=== PATIENT | male | born 1970 | race Caucasian/White ===

== ENCOUNTER 2017-03-15 05:40 | Outpatient (CLI) | payer BC ==
[~2017-03-15] VITALS: Ht 182.9 cm; Wt 72.6 kg
[~2017-03-15 05:40] MED LIST: BUTA1TAB55 PO; DCS100C; DULO60CA6; HYDR1TAB; HYDR1TAB PO; IBUP-792; PNT40TEC; SUCR1TAB23 PO; SULF1TAB38; SULF1TAB38 PO; ZLP10T; relpax PO
[2017-03-15] MEDS ORDERED: PANT40TA3 PO (12:56)
[2017-03-15] MEDS ORDERED: DULO60CA58 PO (12:56)
== END 2017-03-15 13:00 ==
LOC: PREOP 05:40
PROVIDERS: ATTEND Surgery
DX: Z01.818 Encounter for other preprocedural examination (principal); K21.9 Gastro-esophageal reflux disease without esophagitis

== ENCOUNTER 2019-05-14 09:00 | Outpatient (CLI) | payer BC ==
[~2019-05-14] VITALS: Ht 180 cm; Wt 72.7 kg
[~2019-05-14 09:00] MED LIST changes: +DULO60CA59 PO; +PANT40TA3 PO
[2019-05-14] MEDS ORDERED: ZOLP10TA PO (09:06)
[2019-05-14] MEDS ORDERED: TRAM50TA3 PO (09:06)
== END 2019-05-14 09:10 | disposition home or self-care (01) ==
LOC: PREOP 09:00
PROVIDERS: ATTEND Surgery
DX: Z01.818 Encounter for other preprocedural examination (principal)

== ENCOUNTER 2019-05-15 10:03 | Day surgery (SDC) | payer BC ==
--- NOTE | 2019-05-09 06:06 | HISTORY AND PHYSICAL ---
DATE OF SERVICE: ATTENDING PHYSICIAN: Dr. Selene Chadwick. HISTORY OF PRESENT ILLNESS: The patient is a 49-year-old male who was referred over to us for reflux as well as a screening colonoscopy. The patient reports that he does have a history of gastroesophageal reflux disease as well as peptic ulcer disease. He reports he did have an upper endoscopy approximately 5 to 6 years ago and reports that he was found to have a hiatal hernia as well as stomach ulcers. He does report, however, over the last 2 months, he has developed issues with difficulty swallowing and does have occasional episodes of nausea as well as epigastric burning sensation and discomfort. He does report that he does try to watch what he eats. He does take Protonix twice a day; however, still at times does have episodes of reflux. He denies any hematemesis. He also reports that his last colonoscopy was 10 years ago, which he reports was normal. He denies any blood in the stool as well as no family history of colon cancer. He also denies any diarrhea or constipation. PAST MEDICAL HISTORY: Peptic ulcer disease, insomnia, depression. PAST SURGICAL HISTORY: Bilateral total hip replacement in 2009, right elbow surgery 2012. ALLERGIES: PENICILLIN, SULFA. MEDICATIONS: Cymbalta, Protonix, Carafate, Ambien. SOCIAL HISTORY: Negative for smoke. Negative for alcohol. FAMILY HISTORY: Mother breast cancer diagnosed in her 60s, hypertension. Father, myocardial infarction in his 70s. VITAL SIGNS: Blood pressure is 125/58. Current weight 183.8 at 5 feet 11 inches. REVIEW OF SYSTEMS: Well-nourished male in no acute distress. He is not experiencing any shortness of breath or difficulty breathing. No chest pain, palpitations or diaphoresis. He does report occasional episodes of nausea, but no vomiting. He does report episodes of epigastric burning and discomfort as well as reflux and dysphagia. No diarrhea or constipation. No red blood per rectum. No dark tarry stools. No fever or chills. No recent inadvertent weight loss. All other review of systems negative. PHYSICAL EXAMINATION: CHEST: Clear. Good breath sounds bilaterally. HEART: Regular, no murmurs. EXTREMITIES: No lower extremity edema. Negative Homans sign. HEENT: No scleral icterus. NECK: No cervical lymphadenopathy. ABDOMEN: Soft, nontender, nondistended. No palpable masses. No organomegaly. SKIN: Warm, dry and pink. NEUROLOGIC: Awake, alert and oriented x3. ASSESSMENT AND PLAN: A 49-year-old male with dysphagia, who also has a history of peptic ulcer disease and hiatal hernia and is also in need of a screening colonoscopy. At this time, we will recommend proceeding with an EGD with possible balloon dilatation and a screening colonoscopy. The risks and benefits of the procedure as well as the procedure and home care instructions were explained to the patient. The patient verbalized understanding of instructions and agrees to proceed as planned. At this time, we will proceed with scheduling the patient for an EGD with possible balloon dilatation and a screening colonoscopy. Job ID: [id number] DocumentID: [id number] Dictated Date: 05/06/2019 16:15:05 Recruitment Manager Date: 05/06/2019 16:33:57 Dictated By: DAWOOD DURAN APRN
[2019-05-15] VITALS (13 sets, daily range): BP systolic 91–149; BP diastolic 57–91
[~2019-05-15] VITALS: Ht 180 cm; Wt 72.7 kg
[~2019-05-15 10:03] MED LIST changes: +TRAM50TA3 PO; +ZOLP10TA PO
[2019-05-15] MEDS ORDERED: NS IV 500 ML 500 ML IV PRN (10:04)
[2019-05-15] MEDS ORDERED: fentaNYL INJECTION 100 MCG/2 ML AMP IVP ONE (10:15)
[2019-05-15] MEDS ORDERED: HURRICAINE EXT TUBE (BENZOCAINE) XX PRN (10:15)
[2019-05-15] MEDS ORDERED: LIDOCAINE JELLY 2% 6 ML SYRINGE MM PRN (10:15)
--- NOTE | 2019-05-15 10:46 | Conscious Sedation/ASA ---
Conscious Sedation Pre-Proced Time 10:00 ASA Score 1 For ASA 3 and 4: Consider anesthesia and medical clearance. Also, for patients with a history of failed moderate sedation consider anesthesia. Airway Lungs Heart ASA score ASA 1: a normal healthy patient ASA 2: a patient with a mild systemic disease (mid diabetes, controlled hypertension, obesity ASA 3: a patient with a severe systemic disease that limits activity (angina, COPD, prior Myocardial infarction) ASA 4: a patient with an incapacitating disease that is a constant threat to life (CHF, renal failure) ASA 5: a moribund patient not expected to survive 24 hrs. (ruptured aneurysm) ASA 6: a declared brain- patient whose organs are being harvested. For emergent operations, add the letter E after the classification Mallampati Classification Grade 2 Sedation Plan Analgesia, Amnesia, Plan communicated to team members, Discussed options with patient/fam, Discussed risks with patient/fam The patient is an appropriate candidate to undergo the planned procedure, sedation, and anesthesia. The patient immediately re-assessed prior to indication. MADDY CABRERA MD May 15, 2019 10:46
--- NOTE | 2019-05-15 10:46 | Progress Note-Pre Operative ---
Pre-Operative Progress Note H&P Reviewed The H&P was reviewed, patient examined and no changes noted. Date Seen by Provider: May 15, 2019 Time Seen by Provider: 10:00 Date H&P Reviewed: May 15, 2019 Time H&P Reviewed: 10:00 Pre-Operative Diagnosis: GERD, dysphagia MADDY CABRERA MD May 15, 2019 10:46
--- NOTE | 2019-05-15 10:48 | Discharge Inst-Surgical ---
D/C Lap Instructions-RICK Follow Up Activity as tolerated High Fiber Diet 25g or more per day Avoid Alcohol, Caffeine, Spicy [place] and Acid foods. Drink 64 fluid oz or more of fluids per day. Symptoms to Report: Fever over 101 degree F, Nausea/Vomiting If any problems/questions: Contact your physician or go to Emergency Room MADDY CABRERA MD May 15, 2019 10:48
[2019-05-15] MEDS ORDERED: LIDOCAINE JELLY 2% 6 ML SYRINGE ONE (10:56)
[2019-05-15] MEDS ORDERED: fentaNYL INJECTION 100 MCG/2 ML AMP ONE ×2 (10:57)
[2019-05-15] MEDS ORDERED: HURRICAINE EXT TUBE (BENZOCAINE) ONE (10:57)
[2019-05-15] MEDS ORDERED: MIDAZOLAM 5 MG/5 ML (VERSED) VIAL ONE ×3 (10:57)
[2019-05-15] MEDS ORDERED: ACETAMINOPHEN 325 MG TABLET PO PRN (11:00)
[2019-05-15] MEDS ORDERED: HYDROcodone/APAP 5 MG/325 MG (LORTAB) TAB PO PRN (11:00)
[2019-05-15] MEDS ORDERED: ONDANSETRON 4 MG/2 ML (SDV) Z0FRAN IVP PRN (11:00)
[2019-05-15] MEDS ORDERED: morphine INJ 10 MG/ML 1ML (SYR OR VIAL) IVP PRN ×2 (11:00)
[2019-05-15] MEDS: MIDAZOLAM 5 MG/5 ML (VERSED) VIAL IV PRN ×7 (11:04→11:29)
--- NOTE | 2019-05-15 11:52 | Progress Note-Post Operative ---
Post-Operative Progess Note Surgeon (s)/Nailhead Puncher (s) Surgeon MADDY CABRERA MD Nailhead Puncher: none Pre-Operative Diagnosis GERD, dysphagia Post-Operative Diagnosis reflux esophagitis(stage 2-3), mild distal esophageal stricture, small-mod hiatal hernia(2cm), mild gastritis. mild chronic stage 1 ext and int hemorrhoids, normal colon and rectum. Procedure & Operative Findings Date of Procedure 05/15/19 Procedure Performed/Findings EGD with bx and balloon dilatation. Colonoscopy. Anesthesia Type cs Estimated Blood Loss Estimated blood loss (mL): minimal Specimens/Packing Specimens Removed ge jxn, antrum MADDY CABRERA MD May 15, 2019 11:52
--- NOTE | 2019-05-15 13:21 | OPERATIVE REPORT ---
DATE OF SERVICE: 05/15/2019 ATTENDING PRIMARY CARE PHYSICIAN: Dr. Selene Chadwick. PREOPERATIVE DIAGNOSES: Dysphagia, gastroesophageal reflux disease and screening colonoscopy. POSTOPERATIVE DIAGNOSES: Reflux esophagitis between stage II and III with a mild distal esophageal stricture and Schatzki's ring, small to moderate size hiatal hernia approximately 2 cm in size, mild gastritis. No distal obstructions. Mild chronic stage I external and internal hemorrhoids. Prostate gland was palpable and appeared normal. The remainder of the colon was normal. PROCEDURES: EGD with biopsy and balloon dilatation, colonoscopy. SURGEON: Maddy Ochoa MD. ANESTHESIA: Conscious sedation. ESTIMATED BLOOD LOSS: Minimal. FINDINGS: Same as postoperative diagnoses. DISPOSITION: The patient tolerated the procedure well. INDICATIONS: The patient is a 49-year-old male referred over to us for a significant reflux as well as the development of dysphagia. He has had reflux for many years and did undergo an upper endoscopy approximately 6 years ago and was found to have a hiatal hernia as well as stomach ulcerations. Over the last 2 to 3 months, he has had difficulty swallowing. He does not report any hematemesis or coffee ground emesis and is currently on Protonix 40 mg b.i.d. He is also in need of a screening colonoscopy. His last one was approximately 10 years ago. He does not have a family history of colon cancer; however, does have a family history of cancer with his mother having been diagnosed with breast cancer in her 60s. DESCRIPTION OF PROCEDURE: The patient was brought to the endoscopy suite and laid in left lateral decubitus position. After adequate IV pain and sedative medications and conscious sedation anesthesia, the mouthpiece was applied. The endoscope was placed in the mouth, visualizing the pharynx and hypopharyngeal region. Vocal cords, epiglottis and vallecula identified and appeared to be normal. The endoscope was then gently intubated into the esophageal opening and esophagus insufflated. The endoscope was then advanced to the first, second and third portion of the esophagus. At the level of the GE junction, a reflux esophagitis between stage II and III identified. There was also a distal esophageal stricture identified and Schatzki's ring, which was mild. A biopsy was taken of the GE junction with forceps with visualization of good hemostasis. The endoscope was then advanced in the stomach and endoscope retroflexed, visualizing a hiatal hernia, which was small to moderate size, approximately 2 cm. There was also significant reflux with insufflation on a constant basis. There was a mild gastritis. No formal ulcerations, polyps or any neoplasms. A biopsy was taken of the antrum to rule out H. pylori with visualization of good hemostasis. The endoscope was then advanced to the pylorus and the first and second portion of the duodenum, which appeared normal with no distal obstructions. We then proceeded with dilatation of the distal esophageal stricture. The balloon was placed into the stomach and pulled back to the area of stricture. We first proceeded to 2 atmospheres pressure with no resistance. We then proceeded to 4 atmospheres of pressure with mild resistance. Once we had 5 atmospheres of pressure or approximately 19.5 mm in luminal diameter, there was a moderate resistance and left this in place for approximately 60 seconds. The balloon was then desufflated and removed with visualization of good hemostasis as well as no mucosal tears. Endoscope was then slowly withdrawn while taking a second look and suctioning of residual air with no additional findings. Under the same anesthesia, we then proceeded with the colonoscopy portion of procedure. Digital rectal examination was performed, which revealed mild chronic stage I external and internal hemorrhoids, not actively edematous nor inflamed and no bleeding. Normal sphincter tone was felt and there were no palpable masses. The prostate gland was palpable and appeared normal. The endoscope was then intubated and anus and rectum gently insufflated. The endoscope was then advanced to the valves of Storm of the rectum with no polyps or any neoplasms identified. We then proceeded through the sigmoid colon where no diverticulosis identified. The endoscope was then advanced and remainder of the descending, transverse and ascending colon to the cecum. These segments were normal. There were no polyps or any neoplasms identified throughout the colon or rectum. The endoscope was slowly withdrawn while taking a second look and suctioning of residual air with no additional findings. The patient tolerated the procedure well. For his upper gastrointestinal symptoms including the reflux and dysphagia, we will continue with a graded dilatation approximately every 6 to 8 weeks and if he continues to have difficulty with gastroesophageal reflux disease despite maximal medical therapy including the necessary lifestyle and diet accommodation including small and more frequent meals, avoidance of eating at night as well as head elevation while lying supine as well as avoidance of caffeinated beverages, spicy, greasy foods, he may benefit from an antireflux procedure and hiatal hernia repair; however, before doing this, we would do the necessary evaluations and tests including an esophageal manometry study. We will have him followup in 6 to 8 weeks to see about his reflux and dysphagia. From a colonoscopy standpoint, this was completely normal and he does not have any first degree family history of colon cancer and he may wait 10 years for his next colonoscopy. Job ID: [id number] DocumentID: [id number] Dictated Date: 05/15/2019 11:45:58 Utility Locator Date: 05/15/2019 13:20:37 Dictated By: MADDY OCHOA MD
== END 2019-05-15 12:47 | disposition home or self-care (01) ==
LOC: ENDO 10:03
PROVIDERS: ATTEND Surgery
DX: Z12.11 Encounter for screening for malignant neoplasm of colon (principal); K21.0 Gastro-esophageal reflux disease with esophagitis; K22.2 Esophageal obstruction; K44.9 Diaphragmatic hernia without obstruction or gangrene; K29.70 Gastritis, unspecified, without bleeding; K64.0 First degree hemorrhoids; K27.9 Peptic ulcer, site unspecified, unspecified as acute or chronic, without hemorrhage or perforation; Z85.3 Personal history of malignant neoplasm of breast; F32.9 Major depressive disorder, single episode, unspecified; G47.00 Insomnia, unspecified; Z96.643 Presence of artificial hip joint, bilateral; Z88.0 Allergy status to penicillin; Z88.2 Allergy status to sulfonamides; Z79.899 Other long term (current) drug therapy

== ENCOUNTER → 2020-03-18 | Outpatient (CLI) | payer BC ==
[~2020-03-18] MED LIST changes: -PANT40TA3 PO; +PANT40TA52 PO
--- NOTE | 2020-03-18 16:54 | Diagnostic Imaging Report ---
PROCEDURE: MR imaging cervical spine without contrast. TECHNIQUE: Multiplanar, multisequence MR imaging of the cervical spine was performed without contrast. INDICATION: Chronic neck pain. COMPARISON: Cervical spine MRI from 09/26/2008. FINDINGS: The supervisor whipped topping images demonstrate questionable left upper lobe pulmonary mass lesion, although this is more likely artifactual in nature. The cervical spine is normal in alignment. Specifically, there is no spondylolisthesis. No fracture or marrow replacing process. The cervical cord is normal in size and signal. Paravertebral musculature is normal. C2-C3: No spinal canal or neural foraminal narrowing. C3-C4: No spinal canal or neuroforaminal narrowing. C4-C5: Uncovertebral joint hypertrophy causes mild right neuroforaminal narrowing. No spinal stenosis. C5-C6: Bilateral paracentral disc osteophyte complex minimally effaces the ventral thecal sac similar to prior exam. There is no spinal stenosis. Mild right neuroforaminal narrowing due to uncovertebral joint hypertrophy. C6-C7: No spinal canal or neural foraminal narrowing. C7-T1: No spinal canal or neuroforaminal narrowing. IMPRESSION: 1. Minimal degenerative changes in the cervical spine are similar in appearance to 09/26/2008. Dictated by: Dictated on workstation # [id number]
== END ==
LOC: RAD 16:04
PROVIDERS: ATTEND Orthopaedic Surgery
DX: M47.22 Other spondylosis with radiculopathy, cervical region (principal)
CPT/HCPCS: 72141

== ENCOUNTER 2020-05-25 05:29 | Outpatient (RCR) | payer BC ==
[~2020-05-25] VITALS: Ht 180.3 cm; Wt 72.6 kg
== END 2020-05-25 13:30 | disposition home or self-care (01) ==
LOC: PREOP 05:29
PROVIDERS: ATTEND Surgery
DX: Z01.812 Encounter for preprocedural laboratory examination (principal); K21.9 Gastro-esophageal reflux disease without esophagitis; Z20.822 Contact with and (suspected) exposure to COVID-19
CPT/HCPCS: 87635

== ENCOUNTER 2020-05-27 08:28 | Day surgery (SDC) | payer BC ==
--- NOTE | 2020-05-25 08:56 | HISTORY AND PHYSICAL ---
DATE OF SERVICE: DATE OF ADMISSION: 05/27/2020 ATTENDING PRIMARY CARE PHYSICIAN: Selene Chadwick DO HISTORY OF PRESENT ILLNESS: The patient is a 50-year-old male known to us. He has had issues with reflux for approximately 10 years. He has also had issues with peptic ulcer disease in the past as well. Around 2013, he states that he underwent an EGD and was found to have a hiatal hernia as well as stomach ulcerations. He was then seen by us in 04/2019 where he would have epigastric burning sensation; however, would also have pressure sensation with specific types of foods that he ate and this will either reduce on its own over time or come up. He does not report any hematemesis, no coffee ground emesis. He states that he has been doing well for the past year; however, states reoccurrence of the dysphagia. His last EGD was done on 05/15/2019 where he was found to have a reflux esophagitis between stage II and III as well as a mild distal esophageal stricture and Schatzki's ring as well as a small to moderate size hiatal hernia approximately 2 cm in size and no distal obstructions. PAST MEDICAL HISTORY: Peptic ulcer disease, reflux esophagitis, mild esophageal stricture, and insomnia. PAST SURGICAL HISTORY: Bilateral total hip replacement, 10; right elbow surgery, 13. ALLERGIES: PENICILLIN, SULFA. MEDICATIONS: Cymbalta, Protonix, Carafate, Ambien. SOCIAL HISTORY: Negative smoke, negative alcohol. FAMILY HISTORY: Mother, breast cancer, diagnosed in her 60s, hypertension. Father, myocardial infarction in his 70s. VITAL SIGNS: Blood pressure 120/60, current weight 178 pounds at 5 feet 11 inches. REVIEW OF SYSTEMS: Well-nourished male in no acute distress. He is not experiencing any shortness of breath or difficulty breathing. No chest pain, palpitations, diaphoresis. No nausea, vomiting, no diarrhea or constipation. Intermittent episodes of dysphagia with a substernal pressure sensation after food bolus, which were either reduce on its own; however, would also result in regurgitation. No hematemesis, no coffee ground emesis. No diarrhea, constipation, no red blood per rectum, no dark tarry stools. No fever, chills, no recent inadvertent weight loss. All other review of systems negative. PHYSICAL EXAMINATION: CHEST: Clear. Good breath sounds bilaterally. HEART: Regular, no murmurs. EXTREMITIES: No lower extremity edema, negative Homans sign. HEENT: No scleral icterus. NECK: No cervical lymphadenopathy. ABDOMEN: Soft, nontender, nondistended. SKIN: Warm, dry. ASSESSMENT AND PLAN: A 50-year-old male with a history of a reflux esophagitis as well as a mild distal esophageal stricture and small to moderate size hiatal hernia with recurrent dysphagia. We will schedule him for an EGD as well as biopsies as well as a repeat balloon dilatation. Job ID: [id number] DocumentID: [id number] Dictated Date: 05/21/2020 18:50:45 Zigzag Topstitcher Date: 05/21/2020 19:10:10 Dictated By: MADDY CABRERA MD
[2020-05-27] VITALS (12 sets, daily range): BP systolic 110–157; BP diastolic 75–98
[~2020-05-27] VITALS: Ht 180.3 cm; Wt 72.6 kg
[~2020-05-27 08:28] MED LIST changes: +NS IV 500 ML 500 ML ONE
[2020-05-27] MEDS ORDERED: fentaNYL INJ 100 MCG/2 ML AMP IVP ONE (08:45)
[2020-05-27] MEDS ORDERED: HURRICAINE EXT TUBE (BENZOCAINE) XX PRN (08:45)
[2020-05-27] MEDS ORDERED: LIDOCAINE JELLY 2% 6 ML SYRINGE MM PRN (08:45)
[2020-05-27] MEDS ORDERED: NS IV 500 ML 500 ML IV PRN (08:45)
[2020-05-27] MEDS ORDERED: MIDAZOLAM 5 MG/5 ML (VERSED) VIAL IV ONE (08:45)
[2020-05-27] MEDS ORDERED: MIDAZOLAM 5 MG/5 ML (VERSED) VIAL ONE ×2 (08:55→09:52)
[2020-05-27] MEDS ORDERED: LIDOCAINE JELLY 2% 6 ML SYRINGE ONE (08:55)
[2020-05-27] MEDS ORDERED: HURRICAINE EXT TUBE (BENZOCAINE) ONE (08:55)
[2020-05-27] MEDS ORDERED: fentaNYL INJ 100 MCG/2 ML AMP ONE (08:55)
--- NOTE | 2020-05-27 09:43 | Progress Note-Pre Operative ---
Pre-Operative Progress Note H&P Reviewed The H&P was reviewed, patient examined and no changes noted. Date Seen by Provider: May 27, 2020 Time Seen by Provider: 09:00 Date H&P Reviewed: May 27, 2020 Time H&P Reviewed: 09:00 Pre-Operative Diagnosis: GERD, dysphagia MADDY CABRERA MD May 27, 2020 09:43
--- NOTE | 2020-05-27 09:43 | Conscious Sedation/ASA ---
Conscious Sedation Pre-Proced Time 09:00 ASA Score 2 For ASA 3 and 4: Consider anesthesia and medical clearance. Also, for patients with a history of failed moderate sedation consider anesthesia. Airway Lungs Heart ASA score ASA 1: a normal healthy patient ASA 2: a patient with a mild systemic disease (mid diabetes, controlled hypertension, obesity ASA 3: a patient with a severe systemic disease that limits activity (angina, COPD, prior Myocardial infarction) ASA 4: a patient with an incapacitating disease that is a constant threat to life (CHF, renal failure) ASA 5: a moribund patient not expected to survive 24 hrs. (ruptured aneurysm) ASA 6: a declared brain- patient whose organs are being harvested. For emergent operations, add the letter E after the classification Mallampati Classification Grade 2 Sedation Plan Analgesia, Amnesia, Plan communicated to team members, Discussed options with patient/fam, Discussed risks with patient/fam The patient is an appropriate candidate to undergo the planned procedure, sedation, and anesthesia. The patient immediately re-assessed prior to indication. MADDY CABRERA MD May 27, 2020 09:43
[2020-05-27] MEDS ORDERED: ACETAMINOPHEN 325 MG TABLET PO PRN (09:45)
[2020-05-27] MEDS ORDERED: HYDROcodone/APAP 5 MG/325 MG (LORTAB) TAB PO PRN (09:45)
[2020-05-27] MEDS ORDERED: ONDANSETRON 4 MG/2 ML (SDV) Z0FRAN IVP PRN (09:45)
[2020-05-27] MEDS ORDERED: morphine INJ 10 MG/ML 1ML (SYR OR VIAL) IVP PRN ×2 (09:45)
--- NOTE | 2020-05-27 09:45 | Discharge Inst-Surgical ---
D/C Lap Instructions-RICK Follow Up PRN Activity as tolerated High Fiber Diet 25g or more per day Avoid Alcohol, Caffeine, Spicy [place] and Acid foods. Drink 64 fluid oz or more of fluids per day. Symptoms to Report: Fever over 101 degree F, Nausea/Vomiting If any problems/questions: Contact your physician or go to Emergency Room MADDY CABRERA MD May 27, 2020 09:45
--- NOTE | 2020-05-27 10:42 | Progress Note-Post Operative ---
Post-Operative Progess Note Surgeon (s)/Development Analyst (s) Surgeon MADDY CABRERA MD Development Analyst: none Pre-Operative Diagnosis GERD, dysphagia Post-Operative Diagnosis reflux esophagitis(stage 2), mild dist esoph stricture, small HH(2cm), mild gastritis. Procedure & Operative Findings Date of Procedure 05/27/20 Procedure Performed/Findings EGD with bx and balloon dilatation. Anesthesia Type cs Estimated Blood Loss Estimated blood loss (mL): minimal Specimens/Packing Specimens Removed ge jxn, antrum MADDY CABRERA MD May 27, 2020 10:42
--- NOTE | 2020-05-27 16:35 | OPERATIVE REPORT ---
DATE OF SERVICE: 05/27/2020 ATTENDING PRIMARY CARE PHYSICIAN: Dr. Selene Chadwick. PREOPERATIVE DIAGNOSES: Recurrent dysphagia and gastroesophageal reflux disease. POSTOPERATIVE DIAGNOSES: Reflux esophagitis stage II, mild distal esophageal stricture, small hiatal hernia 2 cm in size, mild gastritis and no distal obstructions. PROCEDURES PERFORMED: EGD with biopsy and balloon dilatation. SURGEON: Maddy Cabrera MD. ANESTHESIA: Conscious sedation. ESTIMATED BLOOD LOSS: Minimal. FINDINGS: Reflux esophagitis stage II, mild distal esophageal stricture, small hiatal hernia 2 cm in size, mild gastritis and no distal obstructions. DISPOSITION: The patient tolerated the procedure well. INDICATIONS FOR PROCEDURE: The patient is a 50-year-old male known to us. He has had issues with gastroesophageal reflux for the past 10 years as well as issues with the peptic ulcer disease. Around 2013, he underwent an EGD and found to have a hiatal hernia as well as stomach ulceration. He was then seen by us in 04/2019, where he had epigastric burning sensation; however, would also have a pressure sensation with specific types of foods in the substernal region, which would either reduce on its own or come up over time. He does not report any hematemesis and no coffee ground emesis. He did undergo an EGD as well as a balloon dilatation on 05/15/2019 and was found to have a distal esophageal stricture and Schatzki's ring and he states that this did improve his symptoms; however, in the past few weeks, he has had recurrence of symptoms with the dysphagia. DESCRIPTION OF PROCEDURE: The patient was brought to the endoscopy suite and laid in the left lateral decubitus position. After adequate IV pain and sedative medications and conscious sedation anesthesia, the mouthpiece was applied. The endoscope was placed in the mouth, visualizing the pharynx and hypopharyngeal region. Vocal cords, epiglottis and vallecula identified and appeared to be normal. The endoscope was then gently intubated, the esophageal opening and esophagus insufflated. The endoscope was then advanced through the first, second and third portion of esophagus. At the level of GE junction, a reflux esophagitis stage II identified and there was also a mild distal esophageal stricture in Schatzki's ring. A biopsy was taken of the GE junction with forceps with visualization of good hemostasis. The endoscope was then advanced in the stomach and endoscope retroflexed visualizing a small hiatal hernia, previously identified with no change in size at approximately 2 cm. There was a mild gastritis. No formal ulcerations, polyps or any neoplasms. A biopsy was taken of the antrum to rule out H. pylori with visualization of good hemostasis. The endoscope was then advanced through the pylorus into the first and second portion of the duodenum, which appeared normal with no distal obstructions. The endoscope was then slowly withdrawn while taking a second look with no additional findings. We then proceeded with the dilatation of the distal esophageal stricture and the balloon was placed in the stomach and pulled back to the area of stricture. We then proceeded with 2, then 4, then 6 atmospheres of pressure with moderate resistance or 20 mm in luminal diameter and left this in place for approximately 120 seconds. The balloon was then desufflated and removed with visualization of good hemostasis as well as no mucosal tears. The endoscope was then slowly withdrawn while taking a second look and suctioning of residual air with no additional findings. The patient tolerated the procedure well. We will recommend continued medical management with small and more frequent meals, avoidance of eating at night as well as head elevation while lying supine. He is already on PPI acid program dir, which we will have him continue. We will continue to monitor his progress. If he does continue to have worsening reflux as well as dysphagia, he may continue with a balloon dilatation on a p.r.n. basis. However, the root cause may be the hiatal hernia exacerbating his reflux causing the recurrence of stricture and dysphagia and in long-term he might be better served having the hiatal hernia repair after proceeding with an esophageal manometry study to rule out any esophageal dysmotility disorders. Job ID: [id number] DocumentID: [id number] Dictated Date: 05/27/2020 10:18:05 Or Manager Date: 05/27/2020 16:34:49 Dictated By: MADDY CABRERA MD [facility]ade
== END 2020-05-27 11:05 | disposition home or self-care (01) ==
LOC: ENDO 08:28
PROVIDERS: ATTEND Surgery
DX: K21.00 Gastro-esophageal reflux disease with esophagitis, without bleeding (principal); K22.2 Esophageal obstruction; K44.9 Diaphragmatic hernia without obstruction or gangrene; K29.50 Unspecified chronic gastritis without bleeding; G47.00 Insomnia, unspecified; Z20.822 Contact with and (suspected) exposure to COVID-19; Z88.2 Allergy status to sulfonamides; Z88.0 Allergy status to penicillin; Z96.643 Presence of artificial hip joint, bilateral; Z79.899 Other long term (current) drug therapy; Z80.3 Family history of malignant neoplasm of breast

== ENCOUNTER → 2020-10-06 | Outpatient (CLI) | payer BC ==
[~2020-10-06] VITALS: Ht 177 cm; Wt 72.0 kg
[~2020-10-06] MED LIST changes: +CATHETER FLUSH 10 ML SYR IV PRN; -NS IV 500 ML 500 ML ONE
[2020-10-06 08:06] VITALS: BP 142/86
--- NOTE | 2020-10-08 17:23 | STRESS TEST ---
DATE OF SERVICE: 10/06/2020 RESTING AND POST EXERCISE TECHNETIUM-99M TETROFOSMIN SPECT CT IMAGING ORDERING PHYSICIAN: Dr. Chadwick. PRIMARY PHYSICIAN: Dr. Chadwick. CLINICAL DIAGNOSIS: Chest discomfort. Baseline images were carried out after injection of 10.25 mCi of technetium-99m Tetrofosmin. Subsequently, exercise was carried out on treadmill and it was directed and supervised by Dr. Chadwick and the electrocardiographic portion of the study is reported separately by her. The patient attained 86% of maximum predicted heart rate and received 29.9 mCi of technetium-99m Tetrofosmin at peak exercise. Exercise was continued for about another minute after he received 29.9 mCi of technetium-99m Tetrofosmin. Review of images at rest and following stress does not indicate any significant perfusion defects consistent with myocardial ischemia or infarction. Gated images show normal global left ventricular systolic function with normal regional wall motion. Left ventricular ejection fraction is calculated to be 54%. Left ventricular end diastolic volume is 66 mL. TID is absent (0.97). CONCLUSIONS: 1. No evidence of any significant myocardial ischemia or infarction on this study. 2. Normal regional wall motion. 3. Normal global left ventricular systolic function with a calculated ejection fraction of 54%. Job ID: [id number] DocumentID: [id number] Dictated Date: 10/08/2020 16:44:13 [employer] Manager Date: 10/08/2020 17:22:12 Dictated By: KELLI FOSTER MD, MA, FACP, FACC,
== END ==
LOC: CARD 07:00
PROVIDERS: ATTEND Internal Medicine
DX: R07.89 Other chest pain (principal)
CPT/HCPCS: 78452; 93017; A9502

== ENCOUNTER 2021-11-28 23:26 | Emergency (ER) | payer BC ==
[~2021-11-28] VITALS: Ht 180.3 cm; Wt 77.1 kg
[~2021-11-28 23:26] MED LIST changes: -CATHETER FLUSH 10 ML SYR IV PRN
[2021-11-28] MEDS ORDERED: fentaNYL INJ 100 MCG/2 ML AMP IVP STA (23:51)
[2021-11-28 23:58] LABS: BASOPHILS % (AUTO) 0 % (0-10); EOSINOPHILS # (AUTO) 0.1 10^3/uL (0.0-0.3); EOSINOPHILS % (AUTO) 1 % (0-10); HEMATOCRIT 40 % (40-54); HEMOGLOBIN 14.4 g/dL (13.3-17.7); LYMPHOCYTES # (AUTO) 2.8 10^3/uL (1.0-4.0); LYMPHOCYTES % (AUTO) 30 % (12-44); MEAN CORPUSCULAR HEMOGLOBIN 32 pg (25-34); MEAN CORPUSCULAR HGB CONC 36 g/dL (32-36); MEAN CORPUSCULAR VOLUME 88 fL (80-99); MEAN PLATELET VOLUME 10.4 fL (9.0-12.2); MONOCYTES # (AUTO) 0.8 10^3/uL (0.0-1.0); MONOCYTES % (AUTO) 9 % (0-12); NEUTROPHILS # (AUTO) 5.5 10^3/uL (1.8-7.8); NEUTROPHILS % (AUTO) 60 % (42-75); PLATELET COUNT 321 10^3/uL (130-400); WHITE BLOOD COUNT 9.1 10^3/uL (4.3-11.0)
[2021-11-29] MEDS ORDERED: ONDANSETRON 4 MG/2 ML (SDV) Z0FRAN IVP ONE
[2021-11-29] MEDS ORDERED: LACTATED RINGERS 1,000 ML IV ONE
[2021-11-29] MEDS ORDERED: fentaNYL INJ 100 MCG/2 ML AMP IVP ONE (00:30)
[2021-11-29 00:36] LABS: ALBUMIN 4.3 GM/DL (3.2-4.5); BILIRUBIN,TOTAL 0.4 MG/DL (0.1-1.0); CALCIUM 9.1 MG/DL (8.5-10.1); CREATININE SERUM 0.77 MG/DL (0.60-1.30); MAGNESIUM 1.9 MG/DL (1.6-2.4); POTASSIUM 3.3 MMOL/L (3.6-5.0); TOTAL PROTEIN 6.7 GM/DL (6.4-8.2)
[2021-11-29 00:48] LABS: ERYTHROCYTE SEDIMENTATION RATE 3 MM/HR (0-30)
[2021-11-29] MEDS ORDERED: METOCLOPRAMIDE INJ 10 MG/2 ML (REGLAN) IVP ONE (01:15)
[2021-11-29] MEDS ORDERED: KETOROLAC 30 MG/ML VIAL IVP ONE (01:15)
[2021-11-29] MEDS ORDERED: NS IV 1000 ML 1,000 ML IV ONE (01:30)
[2021-11-29] MEDS ORDERED: RX-METOCLOPRAMIDE 5 MG (REGLAN) TAB PPK#8 PO STA (02:04)
[2021-11-29] MEDS ORDERED: RX-ONDANSETRON 4 MG ODT (ZOFRAN) PPK #4 PO STA (02:06)
[2021-11-29] MEDS ORDERED: METO-310 PO (02:06)
[2021-11-29] MEDS ORDERED: KETO10TA PO (02:06)
[2021-11-29] MEDS ORDERED: ONDA8TAB13 PO (02:06)
--- NOTE | 2021-11-29 02:06 | ED Headache ---
General Chief Complaint: Head/Cervical Problems Stated Complaint: BRICE,NAUSEA Nursing Triage Note: PT AMB TO 9. PT STATED THAT HIS HEADACHE STARTED AN HOUR AGO, HAD A FEVER YESTERDAY, AND NAUSEA THAT STARTED TODAY. PT TOOK TYLENOL AT 1999. Allergies and Home Medications Allergies Coded Allergies: Penicillins (Unverified Allergy, Mild, HIVES, 05/14/19) Sulfa (Sulfonamide Antibiotics) (Unverified Allergy, Mild, ITCHING, 05/14/19) Patient Home Medication List Duloxetine HCl (Duloxetine HCl) 60 Mg Capsule.dr, 60 MG PO DAILY, (Reported) Entered as Reported by: SHENG WILLIAMSON on 03/15/17 1256 Pantoprazole Sodium (Pantoprazole Sodium) 40 Mg Tablet.dr, 40 MG PO BID, (Reported) Entered as Reported by: SHENG WILLIAMSON on 03/15/17 1256 Tramadol HCl (Tramadol HCl) 50 Mg Tablet, 50 MG PO PRN, (Reported) Entered as Reported by: SHENG WILLIAMSON on 05/14/19 0906 Zolpidem Tartrate (Ambien) 10 Mg Tablet, 10 MG PO HS PRN for INSOMNIA, (Reported) Entered as Reported by: SHENG WILLIAMSON on 05/14/19 0906 Past Mdontle-Lbfxfq-Lhufxq Hx Patient Social History Tobacco Use?: No Substance use?: No Alcohol Use?: No Pt feels they are or have been: Unable to obtain Immunizations Up To Date Tetanus Booster (TDap): Unknown Seasonal Allergies Seasonal Allergies: Yes Past Medical History Surgeries: Yes (BILAT HIP REPLACEMENT, ELBOW) Respiratory: No Currently Using CPAP: No Currently Using BIPAP: No Cardiac: No Neurological: Yes Headaches /Migraines Reproductive Disorders: No Sexually Transmitted Disease: No HIV/AIDS: No Genitourinary: No Gastrointestinal: Yes Gastroesophageal Reflux, Hiatal Hernia Musculoskeletal: Yes Degenerate Disk Disease, Chronic Back Pain Endocrine: No HEENT: Yes (GLASSES) Loss of Vision: Denies Hearing Impairment: Denies Cancer: No Psychosocial: Yes Anxiety, Depression Integumentary: No Blood Disorders: No Adverse Reaction/Blood Tranf: No (N/A) Physical Exam Vital Signs Vital Signs - First Documented 11/28/21 23:35 Temp 36.6 Pulse 80 Pulse Ox 98 O2 Delivery Room Air Capillary Refill : Height, Weight, BMI Height: 6'0.00" Weight: 160lbs. 0.0oz. [id number]; 23.00 BMI Method:Stated Progress/Results/Core Measures Results/Orders Lab Results Laboratory Tests Test 11/28/21 23:40 11/28/21 23:50 Range/Units Influenza Type A (RT-PCR) Not Detected Not Detecte Influenza Type B (RT-PCR) Not Detected Not Detecte SARS-CoV-2 RNA (RT-PCR) Not Detected Not Detecte White Blood Count 9.1 4.3-11.0 10^3/uL Red Blood Count 4.55 4.30-5.52 10^6/uL Hemoglobin 14.4 13.3-17.7 g/dL Hematocrit 40 40-54 % Mean Corpuscular Volume 88 80-99 fL Mean Corpuscular Hemoglobin 32 25-34 pg Mean Corpuscular Hemoglobin Concent 36 32-36 g/dL Red Cell Distribution Width 11.8 10.0-14.5 % Platelet Count 321 130-400 10^3/uL Mean Platelet Volume 10.4 9.0-12.2 fL Immature Granulocyte % (Auto) 0 % Neutrophils (%) (Auto) 60 42-75 % Lymphocytes (%) (Auto) 30 12-44 % Monocytes (%) (Auto) 9 0-12 % Eosinophils (%) (Auto) 1 0-10 % Basophils (%) (Auto) 0 0-10 % Neutrophils # (Auto) 5.5 1.8-7.8 10^3/uL Lymphocytes # (Auto) 2.8 1.0-4.0 10^3/uL Monocytes # (Auto) 0.8 0.0-1.0 10^3/uL Eosinophils # (Auto) 0.1 0.0-0.3 10^3/uL Basophils # (Auto) 0.0 0.0-0.1 10^3/uL Immature Granulocyte # (Auto) 0.0 0.0-0.1 10^3/uL Erythrocyte Sedimentation Rate 3 0-30 MM/HR Sodium Level 140 135-145 MMOL/L Potassium Level 3.3 L 3.6-5.0 MMOL/L Chloride Level 104 98-107 MMOL/L Carbon Dioxide Level 23 21-32 MMOL/L Anion Gap 13 5-14 MMOL/L Blood Urea Nitrogen 7 7-18 MG/DL Creatinine 0.77 0.60-1.30 MG/DL Estimat Glomerular Filtration Rate 108 BUN/Creatinine Ratio 9 Glucose Level 99 70-105 MG/DL Calcium Level 9.1 8.5-10.1 MG/DL Corrected Calcium 8.9 8.5-10.1 MG/DL Magnesium Level 1.9 1.6-2.4 MG/DL Total Bilirubin 0.4 0.1-1.0 MG/DL Aspartate Amino Transf (AST/SGOT) 15 5-34 U/L Alanine Aminotransferase (ALT/SGPT) 25 0-55 U/L Alkaline Phosphatase 49 40-136 U/L C-Reactive Protein High Sensitivity 0.28 0.00-0.50 MG/DL Total Protein 6.7 6.4-8.2 GM/DL Albumin 4.3 3.2-4.5 GM/DL My Orders Orders - SHAWN WASHINGTON DO Covid 19 Inhouse Test (11/28/21 23:45) Influenza A And B By Pcr (11/28/21 23:45) Isolation Central Supply Req (11/28/21 23:45) Ed Iv/Invasive Line Start (11/28/21 23:51) Monitor-Rhythm Ecg Trace Only (11/28/21 23:51) Cbc With Automated Diff (11/28/21 23:51) Comprehensive Metabolic Panel (11/28/21 23:51) Hs C Reactive Protein (11/28/21 23:51) Magnesium (11/28/21 23:51) Erythrocyte Sedimentation Rate (11/28/21 23:51) Ondansetron Injection (Zofran Injectio (11/29/21 00:00) Fentanyl Inj (Sublimaze Injection) (11/28/21 23:51) Ed Iv/Invasive Line Start (11/28/21 23:51) Lactated Ringers (Lr 1000 Ml Iv Solution (11/29/21 00:00) Ct Head Wo-R/O Stroke (11/29/21 00:22) Chest Pa/Lat (2 View) (11/29/21 00:22) Fentanyl Inj (Sublimaze Injection) (11/29/21 00:30) Ketorolac Injection (Toradol Injection) (11/29/21 01:15) Metoclopramide Injection (Reglan Injecti (11/29/21 01:15) Ns Iv 1000 Ml (Sodium Chloride 0.9%) (11/29/21 01:30) Medications Given in ED Current Medications Medications Dose Ordered Sig/Melyssa Route Start Time Stop Time Status Last Admin Dose Admin Fentanyl Citrate 50 mcg ONCE ONCE IVP 11/29/21 00:30 11/29/21 00:31 DC 11/29/21 00:34 50 MCG Ketorolac Tromethamine 30 mg ONCE ONCE IVP 11/29/21 01:15 11/29/21 01:16 DC 11/29/21 01:10 30 MG Lactated Ringer's 1,000 ml @ 0 mls/hr Q0M ONCE IV 11/29/21 00:00 11/29/21 00:01 DC 11/29/21 00:13 1,000 MLS/HR Metoclopramide HCl 10 mg ONCE ONCE IVP 11/29/21 01:15 11/29/21 01:16 DC 11/29/21 01:10 10 MG Ondansetron HCl 8 mg ONCE ONCE IVP 11/29/21 00:00 11/29/21 00:01 DC 11/29/21 00:13 8 MG Sodium Chloride 1,000 ml @ 0 mls/hr Q0M ONCE IV 11/29/21 01:30 11/29/21 01:31 DC 11/29/21 01:18 999 MLS/HR Vital Signs/I&O 11/28/21 23:35 Temp 36.6 Pulse 80 B/P (MAP) Pulse Ox 98 O2 Delivery Room Air Departure Impression Primary Impression: Headache Disposition: 01 HOME, SELF-CARE Condition: Improved Departure-Patient Inst. Decision time for Depature: 02:05 Referrals: RAVI HERNANDEZ DO (PCP/Family) Primary Care Physician Patient Instructions: Headache, Adult (DC) Add. Discharge Instructions: HOME, REST LOTS OF CLEAR LIQUIDS FOLLOW UP WITH YOUR DR THIS WEEK FOR FURTHER CARE, RETURN TO ER IF WORSE All discharge instructions reviewed with patient and/or family. Voiced understanding. Scripts Ketorolac Tromethamine (Ketorolac Tromethamine) 10 Mg Tablet 10 MG PO Q6H for Pain, #15 TAB Prov: SHAWN WASHINGTON DO 11/29/21 Metoclopramide HCl (Reglan) 10 Mg Tablet 10 MG PO Q6H for Nausea/Vomiting, #10 TAB Prov: SHAWN WASHINGTON DO 11/29/21 Ondansetron (Ondansetron Odt) 8 Mg Tab.rapdis 8 MG PO Q6H, #10 TAB Prov: SHAWN WASIHNGTON DO 11/29/21 SHAWN WASHINGTON DO Nov 29, 2021 02:06
[2021-11-29 02:12] VITALS: BP 134/98
--- NOTE | 2021-11-29 06:31 | Diagnostic Imaging Report ---
CHEST PA/LAT (2 VIEW) Indication: Cough Comparison: None available Findings: No pulmonary mass or consolidation. No pleural effusion or pneumothorax. Normal heart size and mediastinal contours. Impression: No acute cardiopulmonary process. Dictated by: Dictated on workstation # [id number]
--- NOTE | 2021-11-29 06:48 | Diagnostic Imaging Report ---
PROCEDURE: CT head wo r/o stroke. TECHNIQUE: Multiple contiguous axial images were obtained through the brain without the use of intravenous contrast. Auto Exposure Controls were utilized during the CT exam to meet ALARA standards for radiation dose reduction. INDICATION: Neuro deficit, headache COMPARISON: None available. FINDINGS: No hyperdense hemorrhage or space-occupying mass. No hydrocephalus or midline shift. The basilar cisterns are normal. Ordonez-white matter differentiation is well preserved. The mastoid air cells are clear. Paranasal sinuses are normal. No focal osseous abnormality of the calvarium. IMPRESSION: 1. No acute intracranial process. 2. Findings are in agreement with the preliminary report. Dictated by: Dictated on workstation # [id number]
== END 2021-11-29 02:12 | disposition home or self-care (01) ==
LOC: EDUNIT# 23:26 → ER 23:29
DX: R51.9 Headache, unspecified (principal); R11.0 Nausea; Z86.69 Personal history of other diseases of the nervous system and sense organs; Z20.822 Contact with and (suspected) exposure to COVID-19
CPT/HCPCS: 36415; 70450; 71046; 80053; 83735; 85025; 85652; 86141; 87636; 93041